=== PATIENT | male | born 1980 | race Hispanic/Latino ===

== ENCOUNTER 2017-05-21 03:52 | Emergency (ER) | payer SELFPAY ==
[2017-05-21 04:56] LABS: Hematocrit 45.7 % (35.5-45.6); Mean Corpuscular HGB Conc 35 % (32-34); Mean Corpuscular Hemoglobin 33 pg (28-32); Mean Corpuscular Volume 94 fl (84-94); Platelet Count 287 K/mm3 (140-440); Red Blood Count 4.86 M/mm3 (3.65-5.03); Red Cell Distribution Width 14.1 % (13.2-15.2); White Blood Count 5.9 K/mm3 (4.5-11.0)
[2017-05-21 05:07] LABS: INR 1.02 (0.87-1.13); Partial Thromboplastin Time 25.9 Sec. (24.2-36.6)
[2017-05-21 05:21] LABS: Anion Gap 19 mmol/L; BUN/Creatinine Ratio 9; Blood Urea Nitrogen 6 mg/dL (9-20); Calcium 9.2 mg/dL (8.4-10.2); Carbon Dioxide 34 mmol/L (22-30); Chloride 95.7 mmol/L (98-107); Glucose 78 mg/dL (75-100); Potassium 4.1 mmol/L (3.6-5.0); Sodium 145 mmol/L (137-145)
[2017-05-21 06:36] LABS: Basophils % (Manual) 0 % (0.0-1.8); Blastocytes % (Manual) 0 %; Eosinophils % (Manual) 0 % (0.0-4.3)
[2017-05-21 06:37] LABS: Diff Status Complete; Platelet Estimate Consistent w Auto; RBC Morphology Normal
--- NOTE | 2017-05-21 08:28 | XRay Report ---
ROUTINE CHEST, TWO VIEWS: Chest pain PA and lateral views demonstrate the heart and mediastinal contour to be of normal size and shape. The lungs are clear and fully expanded and the soft tissues and bony structures are normal. IMPRESSION: Normal study.
[2017-05-21] MEDS ORDERED: ATIVAN IV PRN ×2 (08:29)
[2017-05-21] MEDS ORDERED: VITAMIN B-1 100 MG, FOLVITE 1 MG, INFUVITE 10 ML in NACL 0.9% 1000 ML 1,000 ML IV ONE (08:32)
--- NOTE | 2017-05-21 08:35 | Emergency Department Report ---
ED General Adult HPI - General Chief complaint: Alcohol Stated complaint: DETOX,CHEST PAIN Time Seen by Provider: 05/21/17 07:30 Source: patient, family, RN notes reviewed Mode of arrival: Ambulatory Limitations: Other (ethanol intoxication) - History of Present Illness Initial comments: This is a 37-year-old male who was previously unknown to this provider. He has a past medical history of alcohol consumption, alcohol withdrawal seizures and elevated blood pressure. He presents to the ER requesting alcohol detox. His last drink was approximately 5 hours prior to presentation. He denies headache , neck pain, chest pain, abdominal pain and shortness of breath. He reports that when he goes into alcohol withdrawal, he develops sensation of chest palpitations. However these have not developed yet. He has no homicidal or suicidal ideation. He is very anxious about alcohol withdrawal. He seems to be very earnest about going into detox. -: Gradual Consistency: constant Improves with: none Worsens with: none Associated Symptoms: denies: confusion, chest pain, cough, diaphoresis, loss of appetite, malaise, nausea/vomiting, shortness of breath, syncope, weakness - Related Data Previous Rx's Medication Instructions Recorded Last Taken Type Ondansetron [Zofran Odt] 4 mg PO Q8HR PRN #20 tab.rapdis 05/21/17 Unknown Rx chlordiazePOXIDE [Librium] 25 mg PO Q6H PRN #20 capsule 05/21/17 Unknown Rx Allergies Allergy/AdvReac Type Severity Reaction Status Date / Time No Known Allergies Allergy Verified 05/21/17 08:35 ED Review of Systems ROS: Stated complaint: DETOX,CHEST PAIN Other details as noted in HPI Constitutional: denies: fever Eyes: denies: vision change ENT: denies: epistaxis Respiratory: denies: cough Cardiovascular: palpitations. denies: chest pain Gastrointestinal: denies: vomiting Genitourinary: as per HPI Musculoskeletal: as per HPI Skin: as per HPI Neurological: as per HPI Psychiatric: denies: homicidal thoughts, suicidal thoughts ED Past Medical Hx - Past Medical History Previous Medical History?: Yes Additional medical history: Alcohol Abuse. Seizures & HTN when having withdrawals - Surgical History Past Surgical History?: No - Social History Smoking Status: Current Every Day Smoker Substance Use Type: Alcohol, Marijuana - Medications Home Medications: Home Medications Medication Instructions Recorded Confirmed Last Taken Type Ondansetron [Zofran Odt] 4 mg PO Q8HR PRN #20 tab.rapdis 05/21/17 Unknown Rx chlordiazePOXIDE [Librium] 25 mg PO Q6H PRN #20 capsule 05/21/17 Unknown Rx ED Physical Exam - General Limitations: Other (ethanol intoxication) General appearance: alert, appears intoxicated - Head Head exam: Present: atraumatic, normocephalic - Eye Eye exam: Present: normal appearance, EOMI. Absent: nystagmus - ENT ENT exam: Present: normal exam, normal orophraynx, mucous membranes moist, normal external ear exam - Neck Neck exam: Present: normal inspection, full ROM - Respiratory Respiratory exam: Present: normal lung sounds bilaterally. Absent: respiratory distress - Cardiovascular Cardiovascular Exam: Present: regular rate, normal rhythm, normal heart sounds. Absent: systolic murmur, diastolic murmur, rubs, gallop - GI/Abdominal GI/Abdominal exam: Present: soft, normal bowel sounds. Absent: distended, tenderness, guarding, rebound, rigid, pulsatile mass - Rectal Rectal exam: Present: deferred - Extremities Exam Extremities exam: Present: normal inspection, full ROM, normal capillary refill. Absent: pedal edema, joint swelling, calf tenderness - Back Exam Back exam: Present: normal inspection, full ROM. Absent: tenderness, CVA tenderness (R), CVA tenderness (L), muscle spasm, paraspinal tenderness, vertebral tenderness - Neurological Exam Neurological exam: Present: alert, oriented X3, normal gait, other (Extraocular movements intact. Tongue midline. No facial droop. Facial sensation intact to light touch in the V1, V2, V3 distribution bilaterally. 5 and 5 strength in 4 extremities.. Sensation is intact to light touch in 4 extremities.). Absent : motor sensory deficit - Psychiatric Psychiatric exam: Present: anxious. Absent: homicidal ideation, suicidal ideation - Skin Skin exam: Present: warm, dry, intact, normal color. Absent: rash ED Course Vital Signs 05/21/17 05/21/17 05/21/17 04:08 06:50 07:01 Temperature 98.4 F Pulse Rate 61 Respiratory 19 11 L Rate Blood Pressure 134/99 120/90 Blood Pressure [Left] O2 Sat by Pulse 94 93 Oximetry 05/21/17 05/21/17 05/21/17 07:15 07:35 08:01 Temperature 97.9 F Pulse Rate 66 Respiratory 13 20 Rate Blood Pressure 120/90 120/90 Blood Pressure 120/90 [Left] O2 Sat by Pulse 91 94 100 Oximetry 05/21/17 05/21/17 05/21/17 08:15 08:31 08:45 Temperature Pulse Rate 66 65 62 Respiratory 14 13 17 Rate Blood Pressure 129/88 133/91 120/90 Blood Pressure [Left] O2 Sat by Pulse 97 98 97 Oximetry 05/21/17 05/21/17 05/21/17 09:01 09:15 09:31 Temperature Pulse Rate 67 60 65 Respiratory 13 20 14 Rate Blood Pressure 123/88 123/88 131/84 Blood Pressure [Left] O2 Sat by Pulse 96 97 94 Oximetry 05/21/17 05/21/17 05/21/17 09:45 10:01 10:15 Temperature Pulse Rate 60 72 83 Respiratory 16 16 14 Rate Blood Pressure 131/84 121/77 121/77 Blood Pressure [Left] O2 Sat by Pulse 97 90 97 Oximetry 05/21/17 05/21/17 05/21/17 10:31 10:45 11:01 Temperature Pulse Rate 71 67 80 Respiratory 21 16 13 Rate Blood Pressure 131/87 131/87 136/92 Blood Pressure [Left] O2 Sat by Pulse 99 92 97 Oximetry 05/21/17 05/21/17 05/21/17 11:15 11:30 11:45 Temperature Pulse Rate Respiratory 9 L 11 L 15 Rate Blood Pressure 136/92 127/84 127/84 Blood Pressure [Left] O2 Sat by Pulse 96 98 100 Oximetry 05/21/17 05/21/17 05/21/17 12:00 12:15 12:30 Temperature Pulse Rate Respiratory 14 17 9 L Rate Blood Pressure 133/91 133/91 131/89 Blood Pressure [Left] O2 Sat by Pulse 97 100 100 Oximetry 05/21/17 05/21/17 05/21/17 12:45 13:00 13:15 Temperature Pulse Rate 66 62 Respiratory 18 11 L 17 Rate Blood Pressure 131/89 131/92 131/92 Blood Pressure [Left] O2 Sat by Pulse 99 98 96 Oximetry 05/21/17 05/21/17 05/21/17 13:30 13:45 14:00 Temperature Pulse Rate 62 88 62 Respiratory 12 12 13 Rate Blood Pressure 113/79 113/79 129/93 Blood Pressure [Left] O2 Sat by Pulse 98 91 99 Oximetry 05/21/17 05/21/17 14:15 15:00 Temperature 99.0 F Pulse Rate 66 Respiratory 17 Rate Blood Pressure 129/93 Blood Pressure [Left] O2 Sat by Pulse 98 Oximetry - Reevaluation(s) Reevaluation #1: 05/21/17 08:32 Differential diagnosis, including but not limited to: Alcohol dependency, history of alcohol withdrawal seizures Assessment and plan: 37-year-old male who is currently intoxicated from alcohol , not homicidal or suicidal, does not require 1013. He has no chest pain or shortness of breath, no pulmonary embolus or DVT risk factors, low risk by well' s criteria, and is perc negative Patient did endorse concerned about impending palpitations associated with alcohol withdrawal, however he has not experienced these symptomatically or clinically as of yet. Troponin is sent prior to my evaluation, but given clinical history, I do not believe the patient requires an acute coronary syndrome risk stratification. He has not required 1013 as well. He will be placed on an alcohol withdrawal/ ciwa protocol He will also be given a banana bag. Patient denies coingestions, however we will obtain serum toxicology studies. EKG unremarkable 2, nonspecific abnormalities, however patient can follow-up for this as an outpatient. He does not require emergent evaluation for this. Low risk by HIRO score, low risk by heart score. Reevaluation #2: 05/21/17 14:36 Patient has been resting comfortably. Blood alcohol level is decreasing as anticipated. No events noted. At this point in time, it is not appeared to be an immediate medical contraindication to alcohol detox. Crisis team was informed. Reevaluation #3: 05/21/17 14:58 the patient is walking with a steady gait. He is alert and oriented 3. He exhibits decision-making capacity. He appears to be clinically sober at this time. He is accompanied by his feels comfortable to take him home. His indicates that she is going to drive her car. Since the patient is also accompanied by a sober adult and will not be operating motor vehicles, he will be discharged at this time, he does not want to pursue detox at this time. ED Medical Decision Making - Lab Data Result diagrams: 05/21/17 04:42 05/21/17 04:42 Vital Signs 05/21/17 04:08 Temperature 98.4 F Respiratory 19 Rate Blood Pressure 134/99 Lab Results 05/21/17 05/21/17 05/21/17 Range/Units 04:42 04:42 04:42 WBC 5.9 (4.5-11.0) K/mm3 RBC 4.86 (3.65-5.03) M/mm3 Hgb 16.0 H (11.8-15.2) gm/dl Hct 45.7 H (35.5-45.6) % MCV 94 (84-94) fl MCH 33 H (28-32) pg MCHC 35 H (32-34) % RDW 14.1 (13.2-15.2) % Plt Count 287 (140-440) K/mm3 Lymph % (Auto) Cso Add Manual Diff Complete Total Counted 100 Seg Neutrophils % Cso Seg Neuts % (Manual) 30.0 L (40.0-70.0) % Band Neutrophils % 4.0 % Lymphocytes % (Manual) 58.0 H (13.4-35.0) % Reactive Lymphs % (Man) 3.0 % Monocytes % (Manual) 5.0 (0.0-7.3) % Eosinophils % (Manual) 0 (0.0-4.3) % Basophils % (Manual) 0 (0.0-1.8) % Metamyelocytes % 0 % Myelocytes % 0 % Promyelocytes % 0 % Blast Cells % 0 % Nucleated RBC % Not Reportable Seg Neutrophils # Man 1.8 (1.8-7.7) K/mm3 Band Neutrophils # 0.2 K/mm3 Lymphocytes # (Manual) 3.4 (1.2-5.4) K/mm3 Abs React Lymphs (Man) 0.2 K/mm3 Monocytes # (Manual) 0.3 (0.0-0.8) K/mm3 Eosinophils # (Manual) 0.0 (0.0-0.4) K/mm3 Basophils # (Manual) 0.0 (0.0-0.1) K/mm3 Metamyelocytes # 0.0 K/mm3 Myelocytes # 0.0 K/mm3 Promyelocytes # 0.0 K/mm3 Blast Cells # 0.0 K/mm3 WBC Morphology Not Reportable Hypersegmented Neuts Not Reportable Hyposegmented Neuts Not Reportable Hypogranular Neuts Not Reportable Smudge Cells Not Reportable Toxic Granulation Not Reportable Toxic Vacuolation Not Reportable Dohle Bodies Not Reportable Pelger-Huet Anomaly Not Reportable Surinder Rods Not Reportable Platelet Estimate Consistent w auto Clumped Platelets Not Reportable Plt Clumps, EDTA Not Reportable Large Platelets Not Reportable Giant Platelets Not Reportable Platelet Satelliting Not Reportable Plt Morphology Comment Not Reportable RBC Morphology Normal Dimorphic RBCs Not Reportable Polychromasia Not Reportable Hypochromasia Not Reportable Poikilocytosis Not Reportable Anisocytosis Not Reportable Microcytosis Not Reportable Macrocytosis Not Reportable Spherocytes Not Reportable Pappenheimer Bodies Not Reportable Sickle Cells Not Reportable Target Cells Not Reportable Tear Drop Cells Not Reportable Ovalocytes Not Reportable Helmet Cells Not Reportable [place] Bodies Not Reportable [place] Rings Not Reportable [place] Cells Not Reportable Bite Cells Not Reportable Crenated Cell Not Reportable Elliptocytes Not Reportable Acanthocytes (Spur) Not Reportable Rouleaux Not Reportable Hemoglobin C Crystals Not Reportable Schistocytes Not Reportable Malaria parasites Not Reportable Junior Bodies Not Reportable Hem Pathologist Commnt No PT 13.9 (12.2-14.9) Sec. INR 1.02 (0.87-1.13) APTT 25.9 (24.2-36.6) Sec. Sodium 145 (137-145) mmol/L Potassium 4.1 (3.6-5.0) mmol/L Chloride 95.7 L (98-107) mmol/L Carbon Dioxide 34 H (22-30) mmol/L Anion Gap 19 mmol/L BUN 6 L (9-20) mg/dL Creatinine 0.7 L (0.8-1.5) mg/dL Estimated GFR > 60 ml/min BUN/Creatinine Ratio 9 % Glucose 78 (75-100) mg/dL Calcium 9.2 (8.4-10.2) mg/dL Total Creatine Kinase (55-170) units/L Troponin T < 0.010 (0.00-0.029) ng/mL Plasma/Serum Alcohol (0-0.07) gm% 05/21/17 05/21/17 05/21/17 Range/Units 04:42 06:40 06:40 WBC (4.5-11.0) K/mm3 RBC (3.65-5.03) M/mm3 Hgb (11.8-15.2) gm/dl Hct (35.5-45.6) % MCV (84-94) fl MCH (28-32) pg MCHC (32-34) % RDW (13.2-15.2) % Plt Count (140-440) K/mm3 Lymph % (Auto) Add Manual Diff Total Counted Seg Neutrophils % Seg Neuts % (Manual) (40.0-70.0) % Band Neutrophils % % Lymphocytes % (Manual) (13.4-35.0) % Reactive Lymphs % (Man) % Monocytes % (Manual) (0.0-7.3) % Eosinophils % (Manual) (0.0-4.3) % Basophils % (Manual) (0.0-1.8) % Metamyelocytes % % Myelocytes % % Promyelocytes % % Blast Cells % % Nucleated RBC % Seg Neutrophils # Man (1.8-7.7) K/mm3 Band Neutrophils # K/mm3 Lymphocytes # (Manual) (1.2-5.4) K/mm3 Abs React Lymphs (Man) K/mm3 Monocytes # (Manual) (0.0-0.8) K/mm3 Eosinophils # (Manual) (0.0-0.4) K/mm3 Basophils # (Manual) (0.0-0.1) K/mm3 Metamyelocytes # K/mm3 Myelocytes # K/mm3 Promyelocytes # K/mm3 Blast Cells # K/mm3 WBC Morphology Hypersegmented Neuts Hyposegmented Neuts Hypogranular Neuts Smudge Cells Toxic Granulation Toxic Vacuolation Dohle Bodies Pelger-Huet Anomaly Surinder Rods Platelet Estimate Clumped Platelets Plt Clumps, EDTA Large Platelets Giant Platelets Platelet Satelliting Plt Morphology Comment RBC Morphology Dimorphic RBCs Polychromasia Hypochromasia Poikilocytosis Anisocytosis Microcytosis Macrocytosis Spherocytes Pappenheimer Bodies Sickle Cells Target Cells Tear Drop Cells Ovalocytes Helmet Cells [place] Bodies [place] Rings [place] Cells Bite Cells Crenated Cell Elliptocytes Acanthocytes (Spur) Rouleaux Hemoglobin C Crystals Schistocytes Malaria parasites Junior Bodies Hem Pathologist Commnt PT (12.2-14.9) Sec. INR (0.87-1.13) APTT (24.2-36.6) Sec. Sodium (137-145) mmol/L Potassium (3.6-5.0) mmol/L Chloride (98-107) mmol/L Carbon Dioxide (22-30) mmol/L Anion Gap mmol/L BUN (9-20) mg/dL Creatinine (0.8-1.5) mg/dL Estimated GFR ml/min BUN/Creatinine Ratio % Glucose (75-100) mg/dL Calcium (8.4-10.2) mg/dL Total Creatine Kinase 402 H (55-170) units/L Troponin T < 0.010 (0.00-0.029) ng/mL Plasma/Serum Alcohol 0.37 H (0-0.07) gm% - EKG Data -: EKG Interpreted by Me - EKG Data 05/21/17 08:35 EKG #1 demonstrates sinus, 61 bpm, normal axis, QTC prolonged, borderline high left ventricular voltage, Q waves noted in V2, abnormal EKG, not morphologically consistent with an ST elevation myocardial infarction. EKG #2 is unchanged. - Radiology Data Radiology results: report reviewed, image reviewed X-ray the chest is negative for acute disease Critical care attestation.: If time is entered above; I have spent that time in minutes in the direct care of this critically ill patient, excluding procedure time. ED Disposition Clinical Impression: Alcohol dependence Disposition: DC-01 TO HOME OR SELFCARE Is pt being admited?: No Does the pt Need Aspirin: No Condition: Good Instructions: Abuse of Alcohol (ED), At-Risk Alcohol Use (ED) Additional Instructions: Decrease or discontinue consumption of alcohol. Long-term consequences of long- term alcohol consumption includes stroke, heart attack, disability, cardiac issues, liver issues. Do not drive or operate motor vehicles for the next 24 hours. Follow-up with her primary care doctor within a week. Return to the ER, migration of pain, fevers, chills, lethargy, irritability, projectile vomiting, change in mental status, patient, inability to tolerate liquids, homicidality, suicidality. Prescriptions: chlordiazePOXIDE [Librium] 25 mg PO Q6H PRN #20 capsule PRN Reason: Alcohol Withdrawal Ondansetron [Zofran Odt] 4 mg PO Q8HR PRN #20 tab.rapdis PRN Reason: Nausea Referrals: PRIMARY CARE, [Primary Care Provider] - 3-5 Days DI KHAN MD [Staff Physician] - 3-5 Days [facility] [Provider Group] - 3-5 Days
[2017-05-21 15:01] VITALS: BP 129/93
== END 2017-05-21 15:46 | disposition home or self-care (01) ==
LOC: ED 03:52
DX: F10.20 Alcohol dependence, uncomplicated (principal); F17.200 Nicotine dependence, unspecified, uncomplicated; F12.10 Cannabis abuse, uncomplicated
CPT/HCPCS: 36415; 71020; 80048; 82550; 84484; 85007; 85025; 85610; 85730; 93005; 93010; 96365; 99284; G0480; J3411; J7030; 80320